=== PATIENT | male | born 1955 | race Asian ===

== ENCOUNTER 2024-03-14 14:20 | Inpatient (IN) ==
--- NOTE | 2024-03-14 15:03 | XRay Report ---
XR chest 1V portable CLINICAL HISTORY: Chest pain, nonspecific COMPARISON STUDY: No previous studies for comparison. FINDINGS: Lung volumes are normal. Lungs are clear. There is no pneumothorax or pleural effusion. The heart is moderately enlarged. Mediastinal contours are normal. There is no evidence for pulmonary ed immanuel. IMPRESSION: No acute cardiopulmonary findings. Cardiomegaly. ACT 112: Negative or not required by law. Electronically signed by: Bandar Choudhury M.D. 03/14/2024 3:01 PM
--- NOTE | 2024-03-14 15:07 | Emergency Department Note ---
Impression & Plan Anemia, Pancytopenia, NORTH (dyspnea on exertion), Heart murmur ED Provider Note NAME: BELLA MONAE AGE: 68 SEX: M : 1955 ARRIVES VIA: Walk-In INFORMANT: Patient, the patient's friend ED PROVIDER(S): Sixto Bustos DO CHIEF COMPLAINT: Weakness HPI: The patient is a 68-year-old male who presented to the emergency department with a friend. His friend acted as the quantitative strategy analyst. I asked the patient if he wanted a formal quantitative strategy analyst but he would prefer to use his friend at this time. The patient is been having trouble with generalized weakness and shortness of breath with exertion. The patient and his friend normally walk together but the patient has been noticing recently that he has been having shortness of breath especially with exertion. He does not have a family doctor locally. His friends family members with And he had outpatient labs done that show that he is very anemic. The patient was told to come to the emergency department for further evaluation. He denies having any black or tarry stools. ROS: See above HPI for pertinent positives & negatives. A total of 10 systems reviewed and were otherwise negative. PAST MEDICAL HISTORY: See Below PAST SURGICAL HISTORY: See Below FAMILY HISTORY: See Below SOCIAL HISTORY: See Below HOME MEDICATIONS: See Below ALLERGIES: See Below VITALS: See Below PHYSICAL EXAMINATION: GENERAL: Patient is awake alert in no acute distress patient is resting comfortably and showing no signs of anxiety EYES: The conjunctivae are pale. The pupils are round and reactive. EARS, NOSE, MOUTH AND THROAT: The nose is without any evidence of any deformity. Mucous membranes are moist. Tongue is midline. NECK: The neck is nontender and supple. RESPIRATORY: Normal respiratory effort is noted there is no evidence of wheezing rhonchi or rales CARDIOVASCULAR: Regular rate and rhythm noted there no murmurs rubs or gallops normal S1 normal S2. GASTROINTESTINAL: The abdomen is soft. Abdomen is nontender. Rectal exam revealed brown stool which was heme-negative. MUSCULOSKELETAL/EXTREMITIES: There is no evidence of gross deformity full range of motion is noted in the hips and shoulders. SKIN: There is no obvious evidence of any rash. There are no petechiae, pallor or cyanosis noted. NEUROLOGIC: Patient is awake alert and oriented x 3. Gait was steady. MEDICAL DECISION MAKING: The patient is a 70-year-old male who presented to the emergency department with a friend. The patient does not have a family doctor and does not take any medications chronically. The patient started having problems with shortness of breath with exertion. He presented with his friend who also acts as his quantitative strategy analyst at the patient's request. The patient had outpatient laboratory studies done through a family friend which showed his hemoglobin was low. This was felt to be the cause for his shortness of breath. He presented to the emergency department for further evaluation. He does have a heart murmur but does not remember ever being told that he has a heart murmur. The patient was heme positive with his stool. I discussed patient's laboratory and radiographic studies with him. I did consent the patient for blood transfusion and blood transfusion was ordered by myself. The [facility] was notified about the patient. They will evaluate the patient soon as possible. Triage Nursing notes reviewed. Prior medical records reviewed Vital Signs: reviewed and remarkable for no significant abnormalities Differential diagnosis: Infection, dehydration, metabolic abnormality, hypo/hyperglycemia, electrolyte disturbance, anemia, hypoxia, cardiac sources, intracerebral event, toxicologic, neurologic, as well as other pathologies. ER treatment provided: See below Diagnostics interpreted by me: ECG: EKG was obtained in the emergency department. My interpretation is sinus rhythm with first-degree AV block at 80 bpm. LVH was suggested by voltage criteria. There was nonspecific ST segment depressions noted. No previous tracing was available. Cardiac Monitoring: An order was placed for continuous cardiac monitoring. The monitor shows a rate of 86 bpm with sinus rhythm. Laboratory studies: As stated above and show below. Imaging studies: See below. Radiographic imaging was reviewed by myself Consultation(s): Dr Newman, on for the [facility] group was notified about the patient. I discussed this case with the physician assistant teacher who is on for the [facility] group. They have agreed to evaluate the patient in the emergency department. ED COURSE: Procedures: none Critical Care: I have personally spent greater than 45 minutes of critical care time in the direct management of this patient. This includes bedside care, interpretation of diagnostic studies, and testing, discussion with consultants, patient, and family members, and other required patient management activities. This 45 minutes is in excess of all separately billable procedures. Past Med/Surg History Social History Smoking Status: Never smoker Preferred Language: Mandarin Occitan Feels Safe at Home: Yes Results & Data (ED) Vital Signs Vital Signs - 24 hr 03/14/24 14:28 03/14/24 14:37 03/14/24 14:59 Temperature 36.6 C Temperature Source Oral Pulse Rate 78 85 Respiratory Rate 14 15 Respiratory Depth Normal Blood Pressure 126/69 Blood Pressure [Left Arm] 129/74 Blood Pressure Mean 88 Blood Pressure Mean [Left Arm] 92 Pulse Oximetry 96 96 Oxygen Delivery Method Room Air Room Air Sepsis Recent Fever Within 48 Hours No Sepsis New/Unexplained Change in Mental Status N/A Sepsis Action Taken by Nursing No Action Required 03/14/24 15:02 Temperature Temperature Source Pulse Rate 86 Respiratory Rate Respiratory Depth Blood Pressure Blood Pressure [Left Arm] Blood Pressure Mean Blood Pressure Mean [Left Arm] Pulse Oximetry Oxygen Delivery Method Sepsis Recent Fever Within 48 Hours Sepsis New/Unexplained Change in Mental Status Sepsis Action Taken by Fpc Medications Current Medication List: was personally reviewed by me Laboratory Data Attestation: I reviewed the patient's lab results. 03/14/24 14:44 03/14/24 14:44 Lab Results 03/14/24 03/14/24 Range/Units 14:44 14:45 WBC 2.04 L (4.8-10.8) K/ul RBC 3.58 L (4.70-6.10) M/uL Hgb 6.3 L* (14.0-18.0) g/dl Hct 23.1 L (42.0-52.0) % MCV 64.5 L (80.0-100.0) fL MCH 17.6 L (25.0-34.0) pg MCHC 27.3 L (32.0-36.0) g/dL RDW Std Deviation 44.2 (36.4-46.3) fL RDW Coeff of Julio César 19.2 H (11.5-14.5) % Plt Count 76 L (130-400) K/uL Reticulocyte % (Auto) 2.11 H (0.50-2.00) % Reticulocyte # 0.080 (0.020-0.100) 10^6/uL Neutrophils % (Manual) 81 % Lymphocytes % (Manual) 15 % Monocytes % (Manual) 4 % Neutrophils # (Manual) 1.65 (1.40-6.50) K/uL Total Absolute Neuts 1.65 (1.4-6.5) K/uL Lymphocytes # (Manual) 0.31 L (1.2-3.4) K/uL Total Abs Lymphocytes 0.31 L (1.2-3.4) K/uL Monocytes # (Manual) 0.08 L (0.11-0.59) K/uL Platelet Estimate Decreased L (Normal) Polychromasia 1+ Hypochromasia Present Microcytosis Present Tear Drop Cells 1+ Ovalocytes 1+ PT 11.8 (9.0-12.0) Seconds INR 1.1 (0.9-1.1) APTT 25 (21-31) Seconds PTT Ratio 0.9 Sodium 138 (136-145) mmol/L Potassium 4.0 (3.5-5.1) mmol/L Chloride 105 (98-107) mmol/L Carbon Dioxide 25 (21-32) mmol/L Anion Gap 8 (3-11) BUN 19 (6-23) mg/dl Creatinine 0.77 (0.6-1.4) mg/dl Est Cr Clr Drug Dosing 84.0 ml/min Est GFR ( Amer) 108.8 ml/min Est GFR (Non-Af Amer) 93.9 ml/min BUN/Creatinine Ratio 24.7 H (10-20) Glucose 234 H (70-99(Fasting)) mg/dl Calcium 9.0 (8.6-10.3) mg/dl Total Bilirubin 1.2 H (0.2-1.0) mg/dl Direct Bilirubin 0.3 H (0-0.2) mg/dl AST 23 (13-39) U/L ALT 13 (7-52) U/L Alkaline Phosphatase 55 (34-104) U/L Troponin I High Sens 3.2 (0-20) pg/ml Total Protein 7.3 (6.0-8.3) gm/dl Albumin 4.5 (3.4-5.0) gm/dl Globulin 2.8 (2.5-4.0) gm/dl Albumin/Globulin Ratio 1.6 (0.9-2) Lipase 31 (11-82) U/L Anaplasma Smear See Comment Babesia Smear See Comment Lyme Disease Screen Negative (Negative) Blood Type A Positive Antibody Screen NEGATIVE Imaging Data Attestation: I personally reviewed and interpreted this imaging study as follows: My Impression: 1 view chest x-ray was obtained in the emergency department. My interpretation is no free air or definite infiltrate, final report below. Radiologist's Impression: Chest X-Ray 03/14/24 14:37 XR chest 1V portable CLINICAL HISTORY: Chest pain, nonspecific COMPARISON STUDY: No previous studies for comparison. FINDINGS: Lung volumes are normal. Lungs are clear. There is no pneumothorax or pleural effusion. The heart is moderately enlarged. Mediastinal contours are normal. There is no evidence for pulmonary edema. IMPRESSION: No acute cardiopulmonary findings. Cardiomegaly. ACT 112: Negative or not required by law. Electronically signed by: Bandar Choudhury M.D. 03/14/2024 3:01 PM Discharge Plan Visit Data Chief Complaint: Chest Pain Stated Complaint: CHEST PAINS, HEMOGLOBIN IS LOW ED Provider: Sixto Bustos Discharge Problem: Anemia, Pancytopenia, NORTH (dyspnea on exertion), Heart murmur Patient Disposition: Being Evaluated by Hospitalist Forms Stand Alone Forms: [facility] Referrals Referrals: PCP,NO [Primary Care Provider] - Discharge Problem: Anemia Qualifiers: Anemia type: unspecified type Qualified Code(s): D64.9 - Anemia, unspecified
[2024-03-14 15:20] LABS: INR 1.1 (0.9-1.1); Partial Thromboplastin Ratio 0.9; Partial Thromboplastin Time 25 Seconds (21-31); Prothrombin Time 11.8 Seconds (9.0-12.0)
[2024-03-14 15:32] LABS: Hematocrit (blood only) 23.1 % (42.0-52.0); Hemoglobin 6.3 g/dl (14.0-18.0); White Blood Count 2.04 K/ul (4.8-10.8)
[2024-03-14 15:34] LABS: Albumin Globulin Ratio 1.6 (0.9-2); Albumin Level 4.5 gm/dl (3.4-5.0); BUN Creatinine Ratio 24.7 (10-20); Bilirubin Direct 0.3 mg/dl (0-0.2); Bilirubin,Total 1.2 mg/dl (0.2-1.0); Est GFR (African American) 108.8 ml/min; Est GFR (Non-African American) 93.9 ml/min; Globulin 2.8 gm/dl (2.5-4.0); Total Protein 7.3 gm/dl (6.0-8.3)
[2024-03-14 15:38] LABS: Troponin I High Sensitivity 3.2 pg/ml (0-20)
[2024-03-14] MEDS ORDERED: SODIUM CHLORIDE 0.9% 250 ML IV PRN (15:42)
[2024-03-14 15:45] LABS: ALC (manual) 0.31 K/uL (1.2-3.4); ANC (manual) 1.65 K/uL (1.4-6.5); Hypochromasia Present; Lymphocytes # (manual) 0.31 K/uL (1.2-3.4); Lymphocytes % (manual) 15 %; Mean Corpuscular Hemoglobin 17.6 pg (25.0-34.0); Mean Corpuscular Hgb Conc 27.3 g/dL (32.0-36.0); Mean Corpuscular Volume 64.5 fL (80.0-100.0); Microcytosis Present; Monocytes # (manual) 0.08 K/uL (0.11-0.59); Monocytes % (manual) 4 %; Neutrophils # (manual) 1.65 K/uL (1.40-6.50); Neutrophils % (manual) 81 %; Ovalocytes 1+; Platelet Count 76 K/uL (130-400); Platelet Estimate Decreased (Normal); Polychromasia 1+; RDW Coefficient of Variation 19.2 % (11.5-14.5); RDW Standard Deviation 44.2 fL (36.4-46.3); Red Blood Count 3.58 M/uL (4.70-6.10); Reticulocyte % 2.11 % (0.50-2.00); Tear Drop Cells 1+
--- NOTE | 2024-03-14 17:01 | History & Physical Report ---
Date of Service March 14, 2024 Assessment & Plan (1) Pancytopenia: Plan: Patient presenting with 2 months of fatigue and SOB, worsening over the last week - had outpatient labs ordered by a friend and instructed to come to the ER - Hgb 6.3/ Hct 23.1/ MCV 64.5, with tear drop cells - transfuse 2 units PRBCs ordered in ER - peripheral smear pending - Iron studies/Ferritin - consistent with Iron deficiency anemia - Will order 1 dose of IV iron for AM, additional doses pending on how much blood he needs Denies signs of GI bleeding - heme occult pending INR 1.1 B12, folate WNL tick panel negative - DNA testing pending AM CBC (2) Heart murmur: Plan: new for patient EKG: SR with 1st degree - echo ordered, pending (3) Diabetes: Plan: New diagnosis - with HgbA1c 6.7 and random glucose 200+ - BSG ACHS - Novolog SSI - can likely transition to Metformin at discharge, will not initiate at this time in case patient needs IV contrast (4) History of international travel: Plan: Patient recently came to [place] from [place] 02/2024 - Q fever panel pending Plan Dispo: med/tele DVT proh: SCDs, encourage ambulation. Defer chemical in case of active bleed Code status: full code Friend updated at bedside History of Present Illness Chief Complaint: Shortness of breath and fatigue Primary Care Provider: NO PCP Mr. Bourgeois is a 68-year-old male with no past medical history who presents to the ER after abnormal lab results and fatigue/shortness of breath at home. Mr. Horn's primary language is mandrin, he presents with a friend who acts as a director consumer for him. I offered a formal director consumer but patient declined this. for the last 2 months patient has felt more fatigued and short of breath with activity. Reports shortly prior to this he had a checkup with his primary care doctor in [place] and was told that everything was okay. He denies any past medical history and does not take any medications on a daily basis. 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 he denies any bright red blood in the stool melena, dark tarry stools, vomiting or hematochezia. He does report a history of diarrhea but has not had any diarrhea in the last week. He does report some shortness of breath/chest heaviness with activity but does not have any of the symptoms at rest blowing murmur on my exam he denies any history of heart murmur Allergies Allergy/AdvReac Type Severity Reaction Status Date / Time Sulfa (Sulfonamide Allergy Severe SWELLING Verified 03/14/24 16:21 Antibiotics) OF LIPS/FACE/EYES Home Medications Medication Instructions Recorded Confirmed Type No Known Home Medications 03/14/24 03/14/24 History Past Med/Surg History Social History Smoking Status: Never smoker Preferred Language: Mandarin Slovak Feels Safe at Home: Yes Review of Systems Review of Systems: All systems reviewed & are unremarkable except as noted in Subjective Physical Exam Physical Exam: General: NAD, VS as above HEENT: conjunctival pallor, MMdry Resp: normal respiratory effort, lungs clear to auscultation CV: RRR, + murmur Abd: normal bowel sounds, non tender, no hepatosplenomegaly Extremities: Moves all extremities, no edema Neuro: A&O x3, Results & Data Results & Data Vital Signs (Past 12 Hours) Vital Signs Temp Pulse Resp BP BP Pulse Ox O2 Del Method 03/14/24 16:15 86 18 98 03/14/24 16:00 111/77 03/14/24 16:00 84 20 98 03/14/24 15:45 85 20 99 03/14/24 15:32 124/75 03/14/24 15:32 83 18 96 03/14/24 15:30 84 18 97 03/14/24 15:15 82 16 98 03/14/24 15:02 86 03/14/24 15:00 84 15 98 03/14/24 14:59 129/74 03/14/24 14:57 85 19 99 03/14/24 14:37 85 15 96 Room Air 03/14/24 14:28 36.6 C 78 14 126/69 96 Room Air Laboratory Results CBC, chemistry, iron studies, lipase, folate, and TSH reviewed Code Status & VTE Plan VTE Prophylaxis Plan VTE Prophylaxis will be ordered: Yes PG Care Time/CCT Total # of Minutes Spent Total Time Spent with Patient: Total time spent is greater than 50% in coordination of care (as documented) at patient's floor/unit and/or counseling patient: Coding Level of Care Code 72594 INT INP/OBS CARE MIN Diagnoses Pancytopenia D61.818 Heart murmur R01.1 Diabetes E11.9 History of international travel Z78.9
[2024-03-14 17:40] LABS: Thyroid Stimulating Hormone 3.091 uIu/ml (0.300-4.500)
[2024-03-14 17:46] LABS: Ferritin 2.5 ng/ml (8-388)
[2024-03-14 17:51] LABS: Folate (Folic Acid),Ser orPlas > 22.30 ng/ml (>5.38)
[2024-03-14 17:52] LABS: Vitamin B12 660 pg/ml (180-914)
[2024-03-14 18:01] LABS: Estimated Average Glucose 146 mg/dl; Hemoglobin A1C 6.7 % (4.5-5.6)
[2024-03-14] MEDS ORDERED: POLYETHYLENE (MIRALAX) 17 GM PACK PO PRN (20:20)
[2024-03-14] MEDS ORDERED: ACETAMINOPHEN 325 MG TAB PO PRN (20:20)
[2024-03-14] MEDS ORDERED: GLUCAGON FOR INJ 1 MG VIAL IM PRN (20:30)
[2024-03-14] MEDS ORDERED: DEXTROSE 50% 50 ML SYRINGE IV PRN (20:30)
[2024-03-14] MEDS ORDERED: GLUCOSE 10 TAB/TUBE PO PRN (20:30)
[2024-03-14] MEDS ORDERED: GLUCOSE 40% GEL 15 GM TUBE PO PRN (20:30)
[2024-03-14] MEDS ORDERED: CARBOHYDRATES FOR HYPOGLYCEMIA PO PRN (20:30)
[2024-03-14] MEDS: INSULIN ASPART PER UNIT CHARGE SC SCH (20:35)
--- NOTE | 2024-03-14 22:37 | Electrocardiogram Report ---
Test Reason : Blood Pressure : / mmHG Vent. Rate : 080 BPM Atrial Rate : 080 BPM P-R Int : 252 ms QRS Dur : 082 ms QT Int : 386 ms P-R-T Axes : 092 -10 021 degrees QTc Int : 445 ms Sinus rhythm with 1st degree A-V block Minimal voltage criteria for LVH, may be normal variant Borderline ECG No previous ECGs available Confirmed by Kei Murillo ([id number]) on 03/14/2024 10:37:35 PM Referred By: REFERRED SELF Confirmed By:Kei Murillo
[2024-03-15 02:09] LABS: BUN Creatinine Ratio 20.3 (10-20); Calcium 8.9 mg/dl (8.6-10.3); Creatinine Clr Calc Pharmacy 87.4 ml/min; Est GFR (African American) 110.6 ml/min; Est GFR (Non-African American) 95.4 ml/min; Potassium 3.5 mmol/L (3.5-5.1)
[2024-03-15 02:11] LABS: Hematocrit (blood only) 28.2 % (42.0-52.0); Hemoglobin 8.1 g/dl (14.0-18.0); Mean Corpuscular Hemoglobin 18.9 pg (25.0-34.0); Mean Corpuscular Hgb Conc 28.7 g/dL (32.0-36.0); Mean Corpuscular Volume 65.7 fL (80.0-100.0); Platelet Count 63 K/uL (130-400); RDW Coefficient of Variation 20.8 % (11.5-14.5); RDW Standard Deviation 47.6 fL (36.4-46.3); Red Blood Count 4.29 M/uL (4.70-6.10); White Blood Count 2.18 K/ul (4.8-10.8)
[2024-03-15 02:24] LABS: Basophils # (auto) 0.01 K/uL (0.00-0.20); Basophils % (auto) 0.5 %; Eosinophils # (auto) 0.02 K/uL (0.00-0.50); Eosinophils % (auto) 0.9 %; Hypochromasia Present; Lymphocytes # (auto) 0.52 K/uL (1.20-3.40); Lymphocytes % (auto) 23.9 %; Microcytosis Present; Monocytes # (auto) 0.25 K/uL (0.11-0.59); Monocytes % (auto) 11.5 %; Neutrophils # (auto) 1.38 K/uL (1.40-6.50); Neutrophils % (auto) 63.2 %; Ovalocytes 1+; Polychromasia 1+; Target Cells 1+
[2024-03-15] MEDS: IRON SUCROSE 300 MG in SODIUM CHLORIDE 0.9% 250 ML IV STA (10:17)
[2024-03-15 12:36] LABS: Hematocrit (blood only) 29.7 % (42.0-52.0); Hemoglobin 8.6 g/dl (14.0-18.0)
--- NOTE | 2024-03-15 13:52 | Discharge Summary ---
Discharge Summary Date of Service March 15, 2024 Notes For Next Care Provider patient admitted after being pancytopenic, with symptomatic anemia. No overt bleeding on exam, severe iron deficiency. Received 2 units PRBCs and IV Venofer x 1. Patient is only visiting the [facility] for the next 2 to 3 days and then will be returning to [place] and then back to [place] within the next month. H&H stable after 2 units of blood will not persue diagnostic testing or further workup at this time as patient is very eager to leave the hospital but stressed the importance of follow-up when he returns home. Also encouraged to avoid sweets with his elevated A1c Admission HPI Per Admitting Provider Mr. Bourgeois is a 68-year-old male with no past medical history who presents to the ER after abnormal lab results and fatigue/shortness of breath at home. Mr. Horn's primary language is mandrin, he presents with a friend who acts as a metal fitters and machinists for him. I offered a formal metal fitters and machinists but patient declined this. for the last 2 months patient has felt more fatigued and short of breath with activity. Reports shortly prior to this he had a checkup with his primary care doctor in [place] and was told that everything was okay. He denies any past medical history and does not take any medications on a daily basis. 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 he denies any bright red blood in the stool melena, dark tarry stools, vomiting or hematochezia. He does report a history of diarrhea but has not had any diarrhea in the last week. He does report some shortness of breath/chest heaviness with activity but does not have any of the symptoms at rest blowing murmur on my exam he denies any history of heart murmur Principal Dx & Hospital Course #1 = Principal Diagnosis (1) Pancytopenia: Patient presenting with 2 months of fatigue and SOB, worsening over the last week - had outpatient labs ordered by a friend and instructed to come to the ER - Hgb 6.3/ Hct 23.1/ MCV 64.5, with tear drop cells - transfuse 2 units PRBCs ordered in ER - peripheral smear pending - H&H 8.6 and stable after infusion - Iron studies/Ferritin - consistent with Iron deficiency anemia - received Venofer 300 mg x 1 Denies signs of GI bleeding INR 1.1 B12, folate WNL tick panel negative - DNA testing pending patient very eager to be discharged from the hospital today and I feel this is reasonable as his hemoglobin is stable. Unfortunately patient will not be remaining in the [facility] for further follow-up/workup of his pancytopenia. I encouraged patient to have close follow-up with his doctors back home or if he stays in the [place] to get established with a doctor. Return precautions for any ER given. I copied my discharge instructions and printed them out for the patient in Indian. also provided copy of patient's chart to take with him for his future providers (2) Heart murmur: new for patient EKG: SR with 1st degree - echo ordered, pending (3) Diabetes: New diagnosis - with HgbA1c 6.7 and random glucose 200+ Was not started on a regimen at discharge due to lack of follow-up, encouraged diet modifications (4) History of international travel: [place] recently came to [place] from [place] 02/[place]24 - Q fever panel pending Plan Dispo: discharged home today Friend updated at bedside Discharge Exam General: NAD, VS as above HEENT: conjunctival pallor - improving, Resp: normal respiratory effort, lungs clear to auscultation CV: RRR, + murmur Abd: normal bowel sounds, non tender, no hepatosplenomegaly Extremities: Moves all extremities, no edema Neuro: A&O x3, Updated Medication List Medication Instructions Recorded Confirmed Type No Known Home Medications 03/14/24 03/14/24 History Hospital Stay Data Consultations 03/14/24 15:52 ED Decision to Admit Stat Pending Results Patient Have Any Pending Studies at Discharge: No (q fever, tick borne studies, Echo ) Discharge Instructions Given to Patient (Per Discharging Provider) Mr. Bourgeois, you were hospitalized after having abnormal labs, fatigue and shortness of breath. This was because you are found to be profoundly anemicfor this you received 2 units of blood and 1 dose of intravenous iron. thankfully after your infusions the lab results have remained stable - your hemoglobin level was 8.6 prior to discharge. Unfortunately we have not found a cause of why you have anemia but also low platelets and low white blood cell counts. It is very important that you follow-up with a doctor when you get back to [place], likely a confidential investigator (blood doctor). Because your platelets are low you may have a hard time clotting if you were to bleed. If you get a hangnail or cut, make sure you are applying pressure to the wound. If bleeding does not stop return to a local ER. If you notice any blood in your stools, dark stools or black stools you should also return to an ER. As we discussed, we did not find the root cause of the problem and it is very important that you have follow-up regarding why you are anemic. your blood work also showed that you are diabetic, your hemoglobin A1c was 6.7. you should avoid high sugar foods and talk to your primary care doctor in [place] about further management. You also were found to have a new heart murmur, you may need to see a [place] rdiologist (heart doctor) when you get back to [place]. if you have any returning symptoms new shortness of breath or chest pain please go to the local ER. Instructions were translated and Google translate to Indian and printed out for patient. [employer] does not support the Indian characters so could not be done through the official discharge summary Total Time Total Time Spent Total Time Spent (In Minutes): Time spend day of discharge 40 minutes including direct patient care, medication reconciliation, documentation, review of labs and images, and coordination of care. Coding Level of Care Code 23435 INP/OBS DISCH >30 MIN Diagnoses Pancytopenia D61.818 Heart murmur R01.1 Diabetes E11.9 History of international travel Z78.9
--- NOTE | 2024-03-15 18:10 | XCELERA ---
[id number]
== END 2024-03-15 13:43 | disposition home or self-care (01) | DRG 810 ==
LOC: SUATTDRO → ED 14:20 → 4W 16:53